=== PATIENT | male | born 1970 | race Caucasian/White ===

== ENCOUNTER → 2023-06-15 10:15 | Outpatient (CLI) | payer OTHER, SELFPAY ==
--- NOTE | 2023-06-15 | DI.CT.S_ITS ---
PROCEDURE: CT ABDOMEN PELVIS W CON INDICATIONS: Unspecified abdominal pain TECHNIQUE: After the administration of oral and IV contrast, axial sections were acquired from the lung bases to the pubic symphysis. Coronal and sagittal reformats were performed. For radiation dose reduction, the following was used: automated exposure control, adjustment of mA and/or kV according to patient size. COMPARISON: None. FINDINGS: Image quality: Excellent. Lung bases: No pleural effusion. Small hiatal hernia. Heart: No significant findings. ABDOMEN: Liver: A few hypodense foci. Suspect benign cyst or hemangioma. Gallbladder: Within normal limits. Biliary ducts: Unremarkable. Pancreas: No peripancreatic fluid collection. A few small pancreatic calcifications. These could be due to the sequelae of chronic calcific pancreatitis. Spleen: No splenomegaly. Adrenal Glands: No nodule. Kidneys and Ureters: No hydronephrosis. Stomach and Bowel: Diverticulosis. No diverticulitis. Normal appendix. No small bowel obstruction. Stomach is not distended. Peritoneum: No abnormal intraperitoneal fluid. No free air. Ventral Wall: No hernia. Abdominal Nodes: No retroperitoneal or mesenteric adenopathy by size criteria. Vessels: Aorta and inferior vena cava are normal in size. Retroaortic left renal vein. PELVIS: Pelvic Organs: Unremarkable. Bladder: Decompressed. No stone. Pelvic Nodes: No enlarged lymph nodes. Miscellaneous: No inguinal hernias are seen. Bones: No suspicious osseous lesion. IMPRESSION: 1. No acute abnormality identified. No free fluid. 2. Small calcifications within the pancreatic parenchyma. This could be due to chronic calcific pancreatitis. Recommend correlation with serum lipase. 3. Diverticulosis. No diverticulitis. Normal appendix. Dictated by: Levon Maldonado M.D. on 06/15/2023 at 15:02 Approved by: Levon Maldonado M.D. on 06/15/2023 at 15:09
== END ==
PROVIDERS: PCP Student in an Organized Health Care Education/Training Program; Referring Provider Student in an Organized Health Care Education/Training Program; Visit Provider Student in an Organized Health Care Education/Training Program
DX: R10.9 Unspecified abdominal pain (principal); K86.89 Other specified diseases of pancreas; K57.90 Diverticulosis of intestine, part unspecified, without perforation or abscess without bleeding
CPT/HCPCS: 74177; Q9967